=== PATIENT | male | born 1945 | race Caucasian/White ===

== ENCOUNTER 2022-06-02 09:08 | Day surgery (SDC) | payer MEDICARE ==
[2022-05-31 12:12] VITALS: BMI 26.5
[~2022-06-02 09:08] MED LIST: LACTATED RINGERS 1,000 ML IV SCH
[2022-06-02 10:00] VITALS: TEMP 97.3
[2022-06-02] MEDS ORDERED: PROPOFOL 10 MG/ML 20 ML VIAL IV ONE (10:51)
--- NOTE | 2022-06-02 11:11 | P.PCN ---
Date of Procedure: 06/02/22 Procedure(s) Performed: BRIEF HISTORY: Patient is a 76-year-old pleasant male scheduled for an elective colonoscopy as a part of evaluation of prior history of colon polyps. Her last coloscopy was 6 years ago. PROCEDURE PERFORMED: Colonoscopy with snare polypectomy and Endo Clip placement. PREOPERATIVE DIAGNOSIS: History of colon polyps. IV sedation per Anesthesia. PROCEDURE: After informed consent was obtained, the patient, was brought into the endoscopy unit. IV sedation was administered by Anesthesia under continuous monitoring. Digital rectal examination was normal. Initially the Olympus CF-160 flexible video colonoscope was then inserted in the rectum, gradually advanced into the cecum without any difficulty. Careful examination was performed as the scope was gradually being withdrawn. Ileocecal valve and the appendiceal orifice were visualized and appeared normal. Prep was poor in some areas of the colon.. Mucosa of the cecum, we normal. Ascending colon there was a 2.5 cm broad-based polyp that was completely removed by snare polypectomy followed by Endo Clip placement. Rest of the ascending colon, transverse colon, descending colon, normal. Scattered sigmoid diverticulosis seen. In the sigmoid colon there was a 5 mm polyp removed by snare polypectomy. Rest of the sigmoid colon, and rectum appeared normal. Retroflexion was performed in the rectum and no lesions were seen. The patient tolerated the procedure well. IMPRESSION: 2.5 cm broad-based ascending colon polyp status post polypectomy followed by Endo Clip placement 5 mm; sigmoid polyp status post polypectomy Scattered sigmoid diverticulosis RECOMMENDATIONS: Findings of this examination were discussed with the patient and less his family. He was advised to follow with the biopsy results. If the biopsy reveals adenoma he can have a repeat colonoscopy in 3 years..
[2022-06-02 11:34] VITALS: BP 151/75; PULSE 81; RESP 18
== END 2022-06-02 12:08 | disposition home or self-care (01) ==
LOC: ORWHC2ENDO 09:08
PROVIDERS: ATTEND Internal Medicine Gastroenterology
DX: Z12.11 Encounter for screening for malignant neoplasm of colon (principal); K63.5 Polyp of colon; K57.30 Diverticulosis of large intestine without perforation or abscess without bleeding; Z86.010 Personal history of colon polyps; Z87.891 Personal history of nicotine dependence; Z80.0 Family history of malignant neoplasm of digestive organs
CPT/HCPCS: 88305; 45382; 45385; J2704